=== PATIENT | male | born 1945 | race Caucasian/White ===

== ENCOUNTER 2017-05-25 15:26 | Outpatient (CLI) | payer MEDICARE ==
--- NOTE | 2017-05-25 20:20 | Ultrasound Report ---
EXAM: RENAL ULTRASOUND EXAM DATE: 05/25/2017 03:39 PM. CLINICAL HISTORY: ACUTE RENAL FAILURE. COMPARISON: None. TECHNIQUE: Real-time scanning was performed with static images obtained. FINDINGS: Right Kidney: 10.5 x 5.8 x 5.3 cm. Normal echotexture with no stones, contour-deforming masses, or hy dronephrosis. Left Kidney: 11.4 x 6.0 x 5.3 cm. Normal echotexture with no stones, contour-deforming masses, or hyd ronephrosis. Bladder: Bilateral jets seen. The prevoid bladder volume was 495 cc. The postvoid bladder volume was 395 cc. Other: There is heterogeneous enlargement of the prostate. It demonstrates a volume of 180 cc. IMPRESSION: 1. The kidneys demonstrate no shadowing stones or hydronephrosis. 2. Large pre-and post void bladder volumes. 3. There is heterogeneous enlargement of the prostate with a volume of approximately 180 cc. [facility] The call report notification system was initiated by Dr. Ander Obrien at 17:29 hrs on 05/25/17. Referring Provider Line: [phone] SITE ID: [id number]
== END 2017-05-25 15:27 | disposition home or self-care (01) ==
LOC: DI 15:26
DX: R10.84 Generalized abdominal pain (principal); N17.9 Acute kidney failure, unspecified; N40.0 Benign prostatic hyperplasia without lower urinary tract symptoms
CPT/HCPCS: 76770

== ENCOUNTER 2017-05-27 13:02 | Outpatient (CLI) | payer MEDICARE ==
[2017-05-27 14:06] LABS: CALCIUM 9.5 mg/dL (8.5-10.3); CREATININE 1.5 mg/dL (0.6-1.2); POTASSIUM 4.4 mmol/L (3.5-5.0)
== END 2017-05-27 13:03 | disposition home or self-care (01) ==
LOC: LAB 13:02
PROVIDERS: ATTEND Internal Medicine
DX: R10.84 Generalized abdominal pain (principal); N17.9 Acute kidney failure, unspecified
CPT/HCPCS: 36415; 80048

== ENCOUNTER 2017-10-29 13:16 | Emergency (ER) | payer MEDICARE ==
[2017-10-29 13:46] VITALS: BP 136/52
--- NOTE | 2017-10-29 14:41 | ED Physician Documentation ---
PD HPI URI - Stated complaint Stated Complaint: R EAR PX - Chief complaint Chief Complaint: Heent - History obtained from History obtained from: Patient - History of Present Illness Timing - onset: Other (He has had about 5 days of intermittently severe right ear pain with decreased hearing. Some chills with it as well but no measured fevers. He was seen at an urgent care and prescribed doxycycline but is no better. He is not worse either.) Review of Systems Constitutional: reports: Chills. denies: Fever, Fatigue Ears: reports: Ear pain, Drainage/discharge Nose: denies: Rhinorrhea / runny nose, Congestion PD PAST MEDICAL HISTORY - Past Medical History Past Medical History: Yes Cardiovascular: Hypertension, High cholesterol Respiratory: None Neuro: None Endocrine/Autoimmune: Type 1 diabetes GI: None : Frequency Psych: Anxiety Musculoskeletal: Chronic back pain Derm: Other - Past Surgical History Past Surgical History: Yes Ortho: Hip replacement, Spine surgery HEENT: Cataracts - Present Medications Home Medications: Ambulatory Orders Medication Instructions Recorded Confirmed Atenolol [Tenormin] 50 mg PO DAILY 07/12/16 10/29/17 Atorvastatin [Lipitor] 80 mg PO QPM 07/12/16 10/29/17 Glipizide 10 mg PO BIDAC 07/12/16 10/29/17 Amlodipine Besylate 10 mg PO DAILY 07/13/16 10/29/17 Lisinopril 40 mg PO DAILY 07/13/16 10/29/17 Metformin HCl [Glucophage Xr] 1,000 mg PO BIDWM 07/13/16 10/29/17 Cephalexin [Keflex] 500 mg PO QID #40 capsule 07/17/16 10/29/17 Doxycycline Hyclate 100 mg PO BID #20 capsule 07/17/16 10/29/17 Ciprofloxacin HCl [Cipro] 500 mg PO BID #20 tablet 10/29/17 Neomycin/Polymyx/Hc Otic Drops 4 drops OT TID #1 bottle 10/29/17 [Cortisporin Ear Susp] - Allergies Allergies/Adverse Reactions: Allergies Allergy/AdvReac Type Severity Reaction Status Date / Time No Known Drug Allergies Allergy Verified 10/29/17 13:46 - Social History Does the pt smoke?: No Smoking Status: Never smoker Does the pt drink ETOH?: No Does the pt have substance abuse?: No - Immunizations Immunizations are current?: Yes - POLST Patient has POLST: No PD ED PE NORMAL - Vitals Vital signs reviewed: Yes - General General: Alert and oriented X 3, No acute distress - HEENT HEENT: Other (The right TM is normal but he does have external otitis, it is not occlusive. There is no mastoid tenderness. No shingles rash.) - Neck Neck: Supple, no meningeal sign, No bony TTP - Derm Derm: Other (Legs are without evidence of cellulitis, he had a specific concern about that.) - Neuro Neuro: Alert and oriented X 3, Normal speech Results - Vitals Vitals: Vital Signs - 24 hr 10/29/17 13:42 Temperature 36.1 C L Heart Rate 64 Respiratory 18 Rate Blood Pressure 136/52 H O2 Saturation 100 Oxygen O2 Source Room air PD MEDICAL DECISION MAKING - ED course ED course: He has external otitis, given that he is a diabetic he will be treated orally as well as topically. We will change his antibiotic from doxycycline to Cipro. He is advised to stop the doxycycline. Departure - Departure Disposition: 01 Home, Self Care Clinical Impression: Diabetes Qualifiers: Diabetes mellitus type: type 2 Diabetes mellitus complication status: with hyperglycemia Diabetes mellitus halfway insulin use: unspecified halfway insulin use status Qualified Code(s): E11.65 - Type 2 diabetes mellitus with hyperglycemia External otitis of right ear Qualifiers: Otitis externa type: unspecified type Chronicity: acute Qualified Code(s): H60.501 - Unspecified acute noninfective otitis externa, right ear Condition: Good Record reviewed to determine appropriate education?: Yes Instructions: ED Otitis Externa Prescriptions: Ciprofloxacin HCl [Cipro] 500 mg PO BID #20 tablet Neomycin/Polymyx/Hc Otic Drops [Cortisporin Ear Susp] 4 drops OT TID #1 bottle Comments: Call your doctor to arrange a follow-up appointment, make the next available appointment. In the interim, return anytime if worse or if new symptoms develop. Your blood pressure was elevated today on check into the emergency department. This does not mean that you have hypertension, it is a common phenomenon to come to the emergency department and have elevated blood pressure. I recommend that you see your primary care physician within the week to have it rechecked when you are feeling better.
== END 2017-10-29 14:44 | disposition home or self-care (01) ==
LOC: ED 13:16
DX: H60.501 Unspecified acute noninfective otitis externa, right ear (principal); E11.65 Type 2 diabetes mellitus with hyperglycemia; Z79.84 Long term (current) use of oral hypoglycemic drugs; I10 Essential (primary) hypertension; E78.00 Pure hypercholesterolemia, unspecified
CPT/HCPCS: 99283

== ENCOUNTER 2018-06-11 12:03 | Outpatient (CLI) | payer MEDICARE | END 2018-06-11 12:04 | disposition home or self-care (01) | LOC: LAB 12:03 | PROVIDERS: ATTEND Emergency Medicine | DX: Z79.01 Long term (current) use of anticoagulants (principal) | CPT/HCPCS: 85610 ==

== ENCOUNTER 2019-08-12 05:07 | Emergency (ER) | payer MEDICARE ==
--- NOTE | 2019-08-12 05:32 | ED Physician Documentation ---
PD HPI MALE - Stated complaint Stated Complaint: CANNOT URINATE - Chief complaint Chief Complaint: General - History obtained from History obtained from: Patient - History of Present Illness Timing - onset: Today Timing - details: Gradual onset Pain level max: 8 Pain level now: 8 Associated symptoms: Unable to urinate Recently seen: Emergency Dept - Additional information Additional information: patient was T+R from [place] ED for urinary retention, paz placed at that time. catheter was removed 2 days tony, initially, he had no difficulty urinating, but since this afternoon, he has has increasing difficulty urinating and eventuslly no UO despite urge to urinated. Review of Systems Constitutional: denies: Fever, Chills, Sweats GI: reports: Abdominal Pain (suprapubic pain, but no abdominal pain per se), Vomiting : denies: Dysuria, Frequency Musculoskeletal: denies: Back pain Neurologic: denies: Generalized weakness PD PAST MEDICAL HISTORY - Past Medical History Cardiovascular: Hypertension, High cholesterol Respiratory: None Endocrine/Autoimmune: Type 1 diabetes GI: None : Frequency Psych: Anxiety Musculoskeletal: Chronic back pain Derm: Other - Past Surgical History Past Surgical History: Yes Ortho: Hip replacement, Spine surgery HEENT: Cataracts - Present Medications Home Medications: Ambulatory Orders Medication Instructions Recorded Confirmed Atenolol [Tenormin] 50 mg PO DAILY 07/12/16 10/29/17 Atorvastatin [Lipitor] 80 mg PO QPM 07/12/16 10/29/17 Glipizide 10 mg PO BIDAC 07/12/16 10/29/17 Amlodipine Besylate 10 mg PO DAILY 07/13/16 10/29/17 Metformin HCl [Glucophage Xr] 1,000 mg PO BIDWM 07/13/16 10/29/17 lisinopriL [Lisinopril] 40 mg PO DAILY 07/13/16 10/29/17 Cephalexin [Keflex] 500 mg PO QID #40 capsule 07/17/16 10/29/17 Doxycycline Hyclate 100 mg PO BID #20 capsule 07/17/16 10/29/17 Ciprofloxacin HCl [Cipro] 500 mg PO BID #20 tablet 10/29/17 Neomycin/Polymyx/Hc Otic Drops 4 drops OT TID #1 bottle 10/29/17 [Cortisporin Ear Susp] Ciprofloxacin HCl [Cipro] 500 mg PO BID #20 tablet 08/12/19 - Allergies Allergies/Adverse Reactions: Allergies Allergy/AdvReac Type Severity Reaction Status Date / Time No Known Drug Allergies Allergy Verified 08/12/19 05:14 - Social History Does the pt smoke?: No Smoking Status: Never smoker Does the pt drink ETOH?: No Does the pt have substance abuse?: No - Immunizations Immunizations are current?: Yes - POLST Patient has POLST: No PD ED PE NORMAL - Vitals Vital signs reviewed: Yes - General General: Alert and oriented X 3, No acute distress, Well developed/nourished - Cardiac Cardiac: RRR, No murmur - Respiratory Respiratory: No respiratory distress, Clear bilaterally - Abdomen Abdomen: Soft, Non tender, Other (suprapubic fullness with moderate tenderness) - Back Back: No CVA TTP - Derm Derm: Normal color, Warm and dry, No rash Results - Vitals Vitals: Oxygen O2 Source Room air - Labs Labs: Microbiology 08/12/19 05:25 Urine Culture - Preliminary Urine,Catheterized Escherichia Coli Laboratory Tests 08/12/19 05:25 Urine Color YELLOW Urine Clarity CLOUDY Urine pH 5.5 Ur Specific [place] 1.015 Urine Protein TRACE Urine Glucose (UA) NEGATIVE Urine Ketones NEGATIVE Urine Occult Blood MODERATE H Urine Nitrite POSITIVE H Urine Bilirubin NEGATIVE Urine Urobilinogen 0.2 (NORMAL) Ur Leukocyte Esterase LARGE H Urine RBC 6-10 H Urine WBC >25 H Ur Squamous Epith Cells NONE SEEN Urine Bacteria Many H Ur Microscopic Review INDICATED Urine Culture Comments INDICATED PD MEDICAL DECISION MAKING - ED course Complexity details: reviewed results, re-evaluated patient, considered differential, d/w patient, d/w family ED course: RN placed paz catheter resulting in large UO and resolution of symptoms. urine is clear at times but mostly had large amount of purulence and sediment Departure - Departure Disposition: 01 Home, Self Care Clinical Impression: Urinary tract infection, Urinary retention Condition: Good Instructions: ED Catheter Care Paz, ED Retention Urinary Male, ED UTI Cystitis Male Prescriptions: Ciprofloxacin HCl [Cipro] 500 mg PO BID #20 tablet Discharge Date/Time: 08/12/19 06:35
[2019-08-12 05:51] LABS: BILIRUBIN,URINE NEGATIVE (NEGATIVE); GLUCOSE, URINE (UA) NEGATIVE (NEGATIVE); KETONES,URINE (UA) NEGATIVE (NEGATIVE); LEUKOCYTE ESTERASE, URINE LARGE (NEGATIVE); NITRITE,URINE POSITIVE (NEGATIVE); OCCULT BLOOD,URINE MODERATE (NEGATIVE); PH,URINE 5.5 PH (5.0-7.5); PROTEIN,URINE TRACE mg/dL (NEGATIVE); UROBILINOGEN,URINE 0.2 (NORMAL) E.U./dL (NORMAL)
[2019-08-12 05:55] LABS: CLARITY,URINE CLOUDY (CLEAR)
[2019-08-12] MEDS ORDERED: LIDOCAINE 1% 2 ML VIAL MC ONE (06:01)
[2019-08-12] MEDS ORDERED: cefTRIAXone 1 GM VIAL IM STA (06:01)
[2019-08-12] MEDS ORDERED: CIPROFLOXACIN 250 MG TABLET PO STA (06:01)
[2019-08-12 06:02] LABS: BACTERIA,URINE Many /HPF (None Seen); SQUAMOUS EPITHELIAL CELL,UR NONE SEEN (<= Few)
[2019-08-12 06:53] VITALS: BP 120/67
== END 2019-08-12 06:35 | disposition home or self-care (01) ==
LOC: ED 05:07
DX: N39.0 Urinary tract infection, site not specified (principal); R33.9 Retention of urine, unspecified; I10 Essential (primary) hypertension; E10.9 Type 1 diabetes mellitus without complications
CPT/HCPCS: 51702; 51798; 81001; 87086; 87181; 96372; 99283; 99284; A9270; 81003

== ENCOUNTER 2019-08-13 23:58 | Emergency (ER) | payer MEDICARE ==
--- NOTE | 2019-08-14 00:43 | ED Physician Documentation ---
PD HPI MALE - Stated complaint Stated Complaint: CATHETER PAIN - Chief complaint Chief Complaint: Abd Pain - History obtained from History obtained from: Patient - History of Present Illness Timing - onset: Yesterday (The patient was seen 2 days ago with urinary retention post Carrion removal the day prior. He had the Carrion placed without too much discomfort though the patient states he did have some bleeding in the catheter right after placement. He was noticing discomfort around the tip of the penis yesterday and today and he had not noticed that with the prior catheter. He was noticing some clumps of mucus as well as blood in the Carrion catheter output into the bag. He also has had redness and discomfort at the tip of the penis. He felt feverish yesterday with a temperature to 100.5. No back pain or vomiting.) Timing - details: Gradual onset, Still present Associated symptoms: Indwelling catheter (with redness and pain at time of p yonathan, and some discharge noted. He says the urine is draining out the catheter readily.). No: Dysuria, Scrotal swelling Recently seen: Emergency Dept (Seen in the ER 1-1/2 days ago with urinary retention. He had had a catheter removed in the urologist office the day prior to that and had urinated okay for part of the day and then difficulty again. That catheter had been in for a couple of weeks due to acute urinary retention. There is no signs of bladder infection at the initial catheter 2 weeks ago.) Review of Systems Constitutional: reports: Fever (yesterday to 100.5). denies: Chills, Myalgias Nose: denies: Rhinorrhea / runny nose, Congestion Throat: denies: Sore throat Respiratory: denies: Cough GI: denies: Abdominal Pain, Nausea, Vomiting : reports: Hematuria, Discharge Skin: denies: Rash Musculoskeletal: denies: Neck pain, Back pain Neurologic: reports: Generalized weakness. denies: Altered mental status PD PAST MEDICAL HISTORY - Past Medical History Past Medical History: Yes Cardiovascular: Hypertension, High cholesterol Respiratory: None Endocrine/Autoimmune: Type 1 diabetes GI: None : Frequency Psych: Anxiety Musculoskeletal: Chronic back pain Derm: Other - Past Surgical History Past Surgical History: Yes Ortho: Hip replacement, Spine surgery HEENT: Cataracts - Present Medications Home Medications: Ambulatory Orders Medication Instructions Recorded Confirmed Atenolol [Tenormin] 50 mg PO DAILY 12/17/16 04/05/18 Atorvastatin [Lipitor] 80 mg PO QPM 07/12/16 10/29/17 Glipizide 10 mg PO BIDAC 07/12/16 10/29/17 Amlodipine Besylate 10 mg PO DAILY 07/13/16 10/29/17 Metformin HCl [Glucophage Xr] 1,000 mg PO BIDWM 07/13/16 10/29/17 lisinopriL [Lisinopril] 40 mg PO DAILY 07/13/16 10/29/17 Cephalexin [Keflex] 500 mg PO QID #40 capsule 07/17/16 10/29/17 Doxycycline Hyclate 100 mg PO BID #20 capsule 07/17/16 10/29/17 Ciprofloxacin HCl [Cipro] 500 mg PO BID #20 tablet 10/29/17 Neomycin/Polymyx/Hc Otic Drops 4 drops OT TID #1 bottle 10/29/17 [Cortisporin Ear Susp] Ciprofloxacin HCl [Cipro] 500 mg PO BID #20 tablet 08/12/19 Doxycycline Monohydrate 100 mg PO BID #14 tablet 08/14/19 Lidocaine 1 applic TP Q4H PRN #15 cream..g. 08/14/19 Mupirocin 1 applic TP TID #15 g 08/14/19 - Allergies Allergies/Adverse Reactions: Allergies Allergy/AdvReac Type Severity Reaction Status Date / Time No Known Drug Allergies Allergy Verified 08/12/19 05:14 - Social History Does the pt smoke?: No Smoking Status: Never smoker Does the pt drink ETOH?: No Does the pt have substance abuse?: No - Immunizations Immunizations are current?: Yes - POLST Patient has POLST: No PD ED PE NORMAL - Vitals Vital signs reviewed: Yes - General General: Alert and oriented X 3, No acute distress, Well developed/nourished - Cardiac Cardiac: RRR, No murmur - Respiratory Respiratory: Clear bilaterally - Abdomen Abdomen: Normal bowel sounds, Soft, Non tender, Non distended, No organomegaly - 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 The tip of t he penis along the dorsal aspect has some redness and mild skin breakdown. There is some yellowish discharge around the meatus which I cultured. The glands are not swollen. The shaft is not swollen nor tender. The testicles feel normal size and without tenderness. There is some mild inguinal adenopathy on the left. The Carrion catheter bag shows clear. Yellow urine with 1 to small 2 to 3 mm sized clot of blood in the bottom. No obvious sediment.) - Rectal Rectal: Deferred - Back Back: No CVA TTP Results - Vitals Vitals: Vital Signs - 24 hr 08/14/19 08/14/19 00:00 02:29 Temperature 37.1 C 37.0 C Heart Rate 80 71 Respiratory 18 18 Rate Blood Pressure 146/62 H 137/70 H O2 Saturation 98 99 Oxygen O2 Source Room air - Labs Labs: Microbiology 08/14/19 00:57 Wound Culture - Preliminary Skin - Penile PD MEDICAL DECISION MAKING - ED course Complexity details: considered differential (He has some redness and irritation with some mild purulence around the meatus. Carrion catheter is draining fairly clearly. I am concerned he has a skin infection at the penis in addition to the UTI he had had. His urine culture showing E. coli but the sensitivities not yet back. He was prescribed Cipro and I would like to see on the urine sensitivities if it is sensitive to Doxy then at like to switch to that to provide a single antibiotic coverage for the skin as well as the urinary tract infection. Second choice would be sulfa-based but I prefer doxycycline given his somewhat impaired renal function. I did do a culture of the penile tip and will see if that shows a separate source infection.), d/w patient Departure - Departure Disposition: 01 Home, Self Care Clinical Impression: Infection of penis Urinary tract infection Qualifiers: Urinary tract infection type: catheter-associated UTI Indwelling urinary catheter type: indwelling urethral catheter Encounter type: subsequent encounter Qualified Code(s): T83.511D - Infection and inflammatory reaction due to indwelling urethral catheter, subsequent encounter Condition: Stable Record reviewed to determine appropriate education?: Yes Follow-Up: NICO RICHARDS MD [Primary Care Provider] - Prescriptions: Doxycycline Monohydrate 100 mg PO BID #14 tablet Lidocaine 1 applic TP Q4H PRN #15 cream..g. PRN Reason: Pain Mupirocin 1 applic TP TID #15 g Comments: Continue your current Cipro antibiotic until the urine culture and sensitivities are resulted. This likely will be later this morning or midday today. With that information we will see if we can change antibiotics to cover both the bladder infection and also likely skin infection of the penis. The penis skin infection is most likely to be cysts that off aureus. We do have a culture of that that we just started and will result in a couple of days. My intention is to try to treat both bladder and skin infections with one antibiotic. I wrote a prescription for doxycycline twice daily for a week. We should be able to call you with the urine culture result before you need to get that filled for your next dose. You can use mupirocin topical antibiotic around the tip of the penis where the catheter comes out. Do this 2-3 times a day. Also use lidocaine if needed for discomfort. Discharge Date/Time: 08/14/19 02:29
[2019-08-14] MEDS ORDERED: LIDOCAINE OINTMENT 5% 35.44 GM TUBE TOP STA (01:09)
[2019-08-14] MEDS ORDERED: MUPIROCIN 2% OINT 1 GM TOP STA (01:09)
[2019-08-14] MEDS ORDERED: DOXYCYCLINE 100 MG TABLET PO STA (01:22)
[2019-08-14 02:29] VITALS: BP 137/70
--- NOTE | 2019-08-15 09:01 | ED Physician Documentation ---
ED Addendum - Addendum Addendum: 08/15/19 08:59 The phone call from [facility] pharmacy requesting clarification of the lidocaine cream prescription as there is no percentage written on it. They have a 4% [id number] or 5% prescription. Given the fact that Dr. Christiansen wrote a prescription, it would be apparent he wanted the 5% cream and this was discussed with the Pharmacist.
== END 2019-08-14 02:29 | disposition home or self-care (01) ==
LOC: ED 23:58
DX: N48.29 Other inflammatory disorders of penis (principal); T83.511A Infection and inflammatory reaction due to indwelling urethral catheter, initial encounter; I10 Essential (primary) hypertension; E10.9 Type 1 diabetes mellitus without complications; Z79.84 Long term (current) use of oral hypoglycemic drugs
CPT/HCPCS: 87070; 87205; 99283; 99284; A9270

== ENCOUNTER 2019-09-03 19:26 | Emergency (ER) | payer MEDICARE ==
--- NOTE | 2019-09-03 19:56 | ED Physician Documentation ---
History of Present Illness - Stated complaint Stated Complaint: MALE / CATHETER COMPLICATION - Chief complaint Chief Complaint: General - Additonal information Additional information: This is a 74-year-old male with history of diabetes and BPH with paz catheter in place since July 26 of this year, who was sent in by his primary care provider for evaluation of potential perineum infection. He was seen for some swelling around his penis yesterday, which was thought to be fungal, he was started on antifungal agents, and states that overall it has been improving, the redness and swelling is gone down around the penis. He has not had any fever. He was called by his nurse practitioner Maury dominguez, who was concerned that he should be checked for more serious infection given his diabetes and wanted him to be checked here. Patient states he overall feels well, has not any vomiting, his catheter continues to function normally. He does not have any pain in his scrotum or perineum area other than some irritation around his penis. He is taking a topical antifungal which he has applied twice so far. Review of Systems Constitutional: denies: Fever Nose: denies: Rhinorrhea / runny nose Cardiac: denies: Chest pain / pressure Respiratory: denies: Dyspnea GI: denies: Abdominal Pain : reports: Other (Chronic Paz catheterization) Skin: reports: Rash Neurologic: denies: Generalized weakness Immunocompromised: reports: Other (Diabetic) PD PAST MEDICAL HISTORY - Past Medical History Cardiovascular: Hypertension, High cholesterol Respiratory: None Endocrine/Autoimmune: Type 1 diabetes GI: None : Frequency Psych: Anxiety Musculoskeletal: Chronic back pain Derm: Other - Past Surgical History Past Surgical History: Yes Ortho: Hip replacement, Spine surgery HEENT: Cataracts - Present Medications Home Medications: Ambulatory Orders Medication Instructions Recorded Confirmed Atenolol [Tenormin] 50 mg PO DAILY 07/12/16 10/29/17 Atorvastatin [Lipitor] 80 mg PO QPM 07/12/16 10/29/17 Glipizide 10 mg PO BIDAC 07/12/16 10/29/17 Amlodipine Besylate 10 mg PO DAILY 07/13/16 10/29/17 Metformin HCl [Glucophage Xr] 1,000 mg PO BIDWM 07/13/16 10/29/17 lisinopriL [Lisinopril] 40 mg PO DAILY 07/13/16 10/29/17 Cephalexin [Keflex] 500 mg PO QID #40 capsule 07/17/16 10/29/17 Doxycycline Hyclate 100 mg PO BID #20 capsule 07/17/16 10/29/17 Ciprofloxacin HCl [Cipro] 500 mg PO BID #20 tablet 10/29/17 Neomycin/Polymyx/Hc Otic Drops 4 drops OT TID #1 bottle 10/29/17 [Cortisporin Ear Susp] Ciprofloxacin HCl [Cipro] 500 mg PO BID #20 tablet 08/12/19 Doxycycline Monohydrate 100 mg PO BID #14 tablet 08/14/19 Lidocaine 1 applic TP Q4H PRN #15 cream..g. 08/14/19 Mupirocin 1 applic TP TID #15 g 08/14/19 - Allergies Allergies/Adverse Reactions: Allergies Allergy/AdvReac Type Severity Reaction Status Date / Time No Known Drug Allergies Allergy Verified 08/12/19 05:14 - Social History Does the pt smoke?: No Smoking Status: Never smoker Does the pt drink ETOH?: No Does the pt have substance abuse?: No - Immunizations Immunizations are current?: Yes - POLST Patient has POLST: No PD ED PE NORMAL - Vitals Vital signs reviewed: Yes - General General: Alert and oriented X 3, No acute distress - HEENT HEENT: Atraumatic, PERRL - Neck Neck: Supple, no meningeal sign - Cardiac Cardiac: RRR - Respiratory Respiratory: No respiratory distress, Clear bilaterally - Abdomen Abdomen: Normal bowel sounds, Soft, Other (Rotund, nontender to palpation all 4 quadrants) - Male Male : Other (Paz catheter in place. Patient appears circumcised but there is some redundant foreskin. There is mild erythema of the skin, no open lesions or sores. Scrotum is normal in appearance without erythema or tenderness. There is no crepitus, no vesicles or bulla, no skin changes surrounding the groin, the erythema is isolated to the penis itself) - Rectal Rectal: Other (Mitra-anal skin appears normal.) - Derm Derm: Warm and dry - Extremities Extremities: No deformity - Neuro Neuro: Alert and oriented X 3 - Psych Psych: Normal mood, Normal affect Results - Vitals Vitals: Vital Signs - 24 hr 09/03/19 21:11 Temperature 37.0 C Heart Rate 80 Respiratory 16 Rate Blood Pressure 142/62 H O2 Saturation 98 Oxygen O2 Source Room air - Labs Labs: Laboratory Tests 09/03/19 09/03/19 20:07 20:07 WBC 6.3 RBC 4.20 L Hgb 11.6 L Hct 36.3 L MCV 86.4 MCH 27.6 MCHC 32.0 RDW 13.7 Plt Count 242 MPV 9.3 Neut # (Auto) 3.6 Lymph # (Auto) 1.6 [place] # (Auto) 0.7 Eos # (Auto) 0.4 Baso # (Auto) 0.0 Absolute Nucleated RBC 0.00 Nucleated RBC % 0.0 Sodium 136 Potassium 4.8 Chloride 104 Carbon Dioxide 21 Anion Gap 11.0 BUN 35 H Creatinine 1.5 H Estimated GFR (MDRD) 46 L Glucose 288 H Calcium 9.1 Total Bilirubin 0.9 AST 20 ALT 21 Alkaline Phosphatase 83 C-Reactive Protein 1.3 H Total Protein 6.8 Albumin 3.9 Globulin 2.9 Albumin/Globulin Ratio 1.3 Lipase 40 PD MEDICAL DECISION MAKING - ED course Complexity details: considered differential (Laci's gangrene, cellulitis, balanitis, candidal infection, abscess) ED course: Patient is very well-appearing on arrival. He is afebrile, his pulse is normal, and on examination he has some localized inflammation around the penis, but no testicular or scrotal pain or tenderness or skin changes to suggest a more serious infectious process. This does appear to be some [place] infection. Lab s were obtained and showed no leukocytosis, slight anemia which is stable for patient, and some hyperglycemia consistent with his diabetes. His C-reactive protein is essentially normal at 1.3. Given the results of the labs as well as his very reassuring physical exam stability in the emergency department, I certainly do not see any signs of necrotizing soft tissue infection, abscess, or more serious infection and he appears appropriate for outpatient follow-up. I spoke with his primary care provider to discuss the results and our plan here. He will continue his topical antifungals, and will return to the emergency department with any worsening. Patient agreed this plan was discharged home in the care of his . Departure - Departure Disposition: Home, Self Care Clinical Impression: Candidiasis Condition: Good Follow-Up: NICO RICHARDS MD [Primary Care Provider] - Comments: It appears you have a likely yeast infection of the skin around your penis today. Your labs are reassuring, I do not see signs of a severe or more serious infection at this time, and I am glad that you are improving with the antifungal. Please continue the treatment started by your primary care provider, and if it looks that the infection is getting worse or you are having symptoms such as skin changes extending out from your penis, fever, blistering, confusion, or any other concerning symptoms, return to the emergency department immediately. Discharge Date/Time: 09/03/19 21:11
[2019-09-03 20:18] LABS: BASOPHILS % (AUTO) 0.6 %; EOSINOPHILS # (AUTO) 0.4 10^3/uL (0.0-0.7); EOSINOPHILS % (AUTO) 5.8 %; HGB - HEMOGLOBIN 11.6 g/dL (14.0-18.0); LYMPHOCYTES # (AUTO) 1.6 10^3/uL (1.5-3.5); LYMPHOCYTES % (AUTO) 24.8 %; MEAN CORPUSCULAR HEMOGLOBIN 27.6 pg (27.0-31.0); MEAN CORPUSCULAR VOLUME 86.4 fL (80.0-94.0); MEAN PLATELET VOLUME 9.3 fL (7.4-11.4); MONOCYTES # (AUTO) 0.7 10^3/uL (0.0-1.0); NEUTROPHILS # (AUTO) 3.6 10^3/uL (1.5-6.6); NEUTROPHILS % (AUTO) 57.2 %; PLT - PLATELET COUNT 242 10^3/uL (130-450); RED CELL DISTRIBUTION WIDTH 13.7 % (12.0-15.0); WHITE BLOOD COUNT 6.3 x10^3/uL (4.8-10.8)
[2019-09-03 20:37] LABS: ALBUMIN 3.9 g/dL (3.2-5.5); ALBUMIN/GLOBULIN RATIO 1.3 (1.0-2.2); BILIRUBIN,TOTAL 0.9 mg/dL (0.2-1.0); CALCIUM 9.1 mg/dL (8.5-10.3); CREATININE 1.5 mg/dL (0.6-1.2); CRP - C-REACTIVE PROTEIN 1.3 mg/dL (0-1.0); TOTAL PROTEIN 6.8 g/dL (6.7-8.2)
[2019-09-03 21:13] VITALS: BP 142/62
== END 2019-09-03 21:11 | disposition home or self-care (01) ==
LOC: ED 19:26
DX: B37.2 Candidiasis of skin and nail (principal); I10 Essential (primary) hypertension; E10.9 Type 1 diabetes mellitus without complications; Z96.0 Presence of urogenital implants; Z79.84 Long term (current) use of oral hypoglycemic drugs
CPT/HCPCS: 36415; 80053; 83690; 85025; 86140; 99283

== ENCOUNTER 2019-09-07 17:32 | Emergency (ER) | payer MEDICARE ==
[2019-09-07] MEDS ORDERED: FLUCONAZOLE 100 MG TABLET PO STA (17:51)
--- NOTE | 2019-09-07 17:53 | ED Physician Documentation ---
PD HPI MALE - Stated complaint Stated Complaint: FEVER/MALE /CLOUDY URINE - Chief complaint Chief Complaint: UTI - History obtained from History obtained from: Patient (74-year-old gentleman with chronic indwelling Carrion catheter due to large prostate presents with cloudy urine and some bladder spasms starting today. He also notes an itchy rash on his stomach which in the past has been fungal in etiology, and treated with clotrimazole cream but it is too large of an area for that. No fevers.) Review of Systems Constitutional: denies: Fever, Chills Cardiac: denies: Chest pain / pressure, Palpitations Respiratory: denies: Dyspnea, Cough GI: denies: Abdominal Pain, Nausea, Vomiting PD PAST MEDICAL HISTORY - Past Medical History Cardiovascular: Hypertension, High cholesterol Respiratory: None Endocrine/Autoimmune: Type 1 diabetes GI: None : Frequency Psych: Anxiety Musculoskeletal: Chronic back pain Derm: Other - Past Surgical History Past Surgical History: Yes Ortho: Hip replacement, Spine surgery HEENT: Cataracts - Present Medications Home Medications: Ambulatory Orders Medication Instructions Recorded Confirmed Atenolol [Tenormin] 50 mg PO DAILY 07/12/16 10/29/17 Atorvastatin [Lipitor] 80 mg PO QPM 07/12/16 10/29/17 Glipizide 10 mg PO BIDAC 07/12/16 10/29/17 Amlodipine Besylate 10 mg PO DAILY 07/13/16 10/29/17 Metformin HCl [Glucophage Xr] 1,000 mg PO BIDWM 07/13/16 10/29/17 lisinopriL [Lisinopril] 40 mg PO DAILY 07/13/16 10/29/17 Cephalexin [Keflex] 500 mg PO QID #40 capsule 07/17/16 10/29/17 Doxycycline Hyclate 100 mg PO BID #20 capsule 07/17/16 10/29/17 Ciprofloxacin HCl [Cipro] 500 mg PO BID #20 tablet 10/29/17 Neomycin/Polymyx/Hc Otic Drops 4 drops OT TID #1 bottle 10/29/17 [Cortisporin Ear Susp] Ciprofloxacin HCl [Cipro] 500 mg PO BID #20 tablet 08/12/19 Doxycycline Monohydrate 100 mg PO BID #14 tablet 08/14/19 Lidocaine 1 applic TP Q4H PRN #15 cream..g. 08/14/19 Mupirocin 1 applic TP TID #15 g 08/14/19 Amox/Clav 875/125 [Augmentin] 1 each PO Q12H #20 tablet 09/07/19 Fluconazole [Diflucan] 150 mg PO ONCE #3 tablet 09/07/19 - Allergies Allergies/Adverse Reactions: Allergies Allergy/AdvReac Type Severity Reaction Status Date / Time latex AdvReac Rash Verified 09/07/19 17:41 - Social History Does the pt smoke?: No Smoking Status: Never smoker Does the pt drink ETOH?: No Does the pt have substance abuse?: No - Immunizations Immunizations are current?: Yes - POLST Patient has POLST: No PD ED PE NORMAL - Vitals Vital signs reviewed: Yes - General General: Alert and oriented X 3, No acute distress - HEENT HEENT: PERRL, EOMI - Abdomen Abdomen: Soft, Non tender - Male Male : Other (The foreskin and glans are red and inflamed. There is a catheter in place that per the is about 2 weeks old, seems to be draining freely. The urine in the bag is cloudy.) - Derm Derm: Other (Mild erythema to the abdominal wall) - Extremities Extremities: No edema, No calf tenderness / cord - Neuro Neuro: Alert and oriented X 3, Normal speech Results - Vitals Vitals: Vital Signs - 24 hr 09/07/19 17:36 Temperature 36.4 C L Heart Rate 84 Respiratory 17 Rate Blood Pressure 130/60 O2 Saturation 99 Oxygen O2 Source Room air - Labs Labs: Laboratory Tests 09/07/19 17:55 Urine Color LT. YELLOW Urine Clarity HAZY Urine pH 6.0 Ur Specific [place] 1.010 Urine Protein TRACE Urine Glucose (UA) >=1000 H Urine Ketones NEGATIVE Urine Occult Blood MODERATE H Urine Nitrite NEGATIVE Urine Bilirubin NEGATIVE Urine Urobilinogen 0.2 (NORMAL) Ur Leukocyte Esterase MODERATE H Urine RBC 6-10 H Urine WBC >25 H Ur Squamous Epith Cells RARE Squamous Urine Bacteria Few Ur Microscopic Review INDICATED Urine Culture Comments INDICATED PD MEDICAL DECISION MAKING - ED course ED course: 74-year-old gentleman with chronic indwelling catheter presents with cloudy urine. Also some fungal infection of the skin. He was placed on Diflucan here. Previous urine culture from July reviewed, pansensitive E. coli at that time. Will treat with Augmentin pending cultures. Cannot use Bactrim due to interactions with other medications. Departure - Departure Disposition: 01 Home, Self Care Clinical Impression: Fungal skin infection UTI (urinary tract infection) Qualifiers: Urinary tract infection type: catheter-associated UTI Indwelling urinary catheter type: indwelling urethral catheter Encounter type: initial encounter Qualified Code(s): T83.511A - Infection and inflammatory reaction due to indwelling urethral catheter, initial encounter; N39.0 - Urinary tract infection, site not specified Condition: Good Record reviewed to determine appropriate education?: Yes Instructions: ED UTI Cystitis Male Prescriptions: Amox/Clav 875/125 [Augmentin] 1 each PO Q12H #20 tablet Fluconazole [Diflucan] 150 mg PO ONCE #3 tablet Comments: For the fungal skin infection you should take Diflucan once a week. We gave you a dose here. So next dose will be next Thursday. A total of 4 weeks. Follow-up with the urologist as scheduled. We will culture your urine, the results should be done in 48-72 hours. If an antibiotic change is necessary we will call you. Return if worse in the meantime, especially if you develop increasing flank pain, fevers, or cannot keep down the medication.
[2019-09-07 18:10] LABS: BILIRUBIN,URINE NEGATIVE (NEGATIVE); GLUCOSE, URINE (UA) >=1000 mg/dL (NEGATIVE); KETONES,URINE (UA) NEGATIVE (NEGATIVE); LEUKOCYTE ESTERASE, URINE MODERATE (NEGATIVE); NITRITE,URINE NEGATIVE (NEGATIVE); OCCULT BLOOD,URINE MODERATE (NEGATIVE); PROTEIN,URINE TRACE mg/dL (NEGATIVE); UROBILINOGEN,URINE 0.2 (NORMAL) E.U./dL (NORMAL)
[2019-09-07 18:17] LABS: CLARITY,URINE HAZY (CLEAR)
[2019-09-07 18:25] LABS: BACTERIA,URINE Few /HPF (None Seen); SQUAMOUS EPITHELIAL CELL,UR RARE Squamous (<= Few)
[2019-09-07] MEDS ORDERED: AMOX/CLAV 875 MG/125 MG TABLET PO STA (18:36)
[2019-09-07 18:45] VITALS: BP 130/80
== END 2019-09-07 18:44 | disposition home or self-care (01) ==
LOC: ED 17:32
DX: T83.511A Infection and inflammatory reaction due to indwelling urethral catheter, initial encounter (principal); Y84.6 Urinary catheterization as the cause of abnormal reaction of the patient, or of later complication, without mention of misadventure at the time of the procedure; B36.9 Superficial mycosis, unspecified; I10 Essential (primary) hypertension; E10.9 Type 1 diabetes mellitus without complications
CPT/HCPCS: 81001; 87077; 87086; 87181; 99283; 99284; A9270; 81003

== ENCOUNTER 2020-06-17 13:23 | Outpatient (CLI) | payer MEDICARE | END 2020-06-17 23:59 | disposition home or self-care (01) | LOC: LAB.R 13:23 | PROVIDERS: ATTEND Physician Assistant | DX: J06.9 Acute upper respiratory infection, unspecified (principal); J02.9 Acute pharyngitis, unspecified; Z20.828 Contact with and (suspected) exposure to other viral communicable diseases ==

== ENCOUNTER 2020-07-11 15:17 | Outpatient (CLI) | payer MEDICARE ==
[2020-07-11 20:21] LABS: CALCIUM 9.4 mg/dL (8.5-10.3); CREATININE 1.4 mg/dL (0.6-1.2); MAGNESIUM 2.3 mg/dL (1.7-2.8)
== END 2020-07-11 15:18 | disposition home or self-care (01) ==
LOC: LAB.S 15:17
PROVIDERS: ATTEND Nurse Practitioner Family
DX: E11.29 Type 2 diabetes mellitus with other diabetic kidney complication (principal)
CPT/HCPCS: 36415; 80048; 82043; 83735

== ENCOUNTER 2021-05-17 07:00 | Outpatient (CLI) | payer MEDICARE | END 2021-05-17 23:59 | disposition home or self-care (01) | LOC: COV 07:00 | PROVIDERS: ATTEND Emergency Medicine | DX: J06.9 Acute upper respiratory infection, unspecified (principal); R05.9 Cough, unspecified; Z20.822 Contact with and (suspected) exposure to COVID-19 ==

== ENCOUNTER 2022-03-30 15:40 | Emergency (ER) | payer MEDICARE ==
--- NOTE | 2022-03-30 17:58 | ED Physician Documentation ---
History of Present Illness - Stated complaint Stated Complaint: MALE - Chief complaint Chief Complaint: Wound - History obtained from History obtained from: Patient, Family - Additonal information Additional information: PT comes to the ED with CC of penile lesion and possible "spider bite" to his L buttock. He just noticed the penile lesion today, but the painful bump on his buttock has been there for several days, though it's now improving. No fevers or chills. No other lesions. No penile discharge or dysuria. No abd pain or vomiting. He is sexually monogamous with his , but does have a h/o herpes. Review of Systems Ten Systems: 10 systems reviewed and negative Constitutional: reports: Reviewed and negative Eyes: reports: Reviewed and negative Ears: reports: Reviewed and negative Nose: reports: Reviewed and negative Throat: reports: Reviewed and negative Cardiac: reports: Reviewed and negative Respiratory: reports: Reviewed and negative GI: reports: Reviewed and negative : reports: Reviewed and negative Skin: reports: Reviewed and negative Musculoskeletal: reports: Reviewed and negative Neurologic: reports: Reviewed and negative Psychiatric: reports: Reviewed and negative Endocrine: reports: Reviewed and negative Immunocompromised: reports: Reviewed and negative PD PAST MEDICAL HISTORY - Past Medical History Past Medical History: Yes Cardiovascular: Hypertension, High cholesterol Respiratory: None Neuro: None Endocrine/Autoimmune: Type 1 diabetes GI: None : Benign prostate hypertrophy, Frequency HEENT: None Psych: Anxiety Musculoskeletal: Chronic back pain Derm: Other - Past Surgical History Past Surgical History: Yes Ortho: Hip replacement, Spine surgery HEENT: Cataracts - Present Medications Home Medications: Ambulatory Orders Medication Instructions Recorded Confirmed Atenolol [Tenormin] 50 mg PO DAILY 07/12/16 10/29/17 Atorvastatin [Lipitor] 80 mg PO QPM 07/12/16 10/29/17 glipiZIDE [Glipizide] 10 mg PO BIDAC 07/12/16 10/29/17 Amlodipine Besylate 10 mg PO DAILY 07/13/16 10/29/17 Metformin HCl [Glucophage Xr] 1,000 mg PO BIDWM 07/13/16 10/29/17 lisinopriL [Lisinopril] 40 mg PO DAILY 07/13/16 10/29/17 Doxycycline Hyclate 100 mg PO BID #20 capsule 07/17/16 10/29/17 cephALEXin [Keflex] 500 mg PO QID #40 capsule 07/17/16 10/29/17 Ciprofloxacin HCl [Cipro] 500 mg PO BID #20 tablet 10/29/17 Neomycin/Polymyx/Hc Otic Drops 4 drops OT TID #1 bottle 10/29/17 [Cortisporin Ear Susp] Ciprofloxacin HCl [Cipro] 500 mg PO BID #20 tablet 08/12/19 Doxycycline Monohydrate 100 mg PO BID #14 tablet 08/14/19 Lidocaine 1 applic TP Q4H PRN #15 cream..g. 08/14/19 Mupirocin 1 applic TP TID #15 g 08/14/19 Amox/Clav 875/125 [Augmentin] 1 each PO Q12H #20 tablet 09/07/19 Fluconazole [Diflucan] 150 mg PO ONCE #3 tablet 09/07/19 Clindamycin HCl [Clindamycin 300MG 300 mg PO Q6H #28 capsule 09/28/19 CAP] - Allergies Allergies/Adverse Reactions: Allergies Allergy/AdvReac Type Severity Reaction Status Date / Time latex AdvReac Rash Verified 03/30/22 15:50 - Social History Does the pt smoke?: No Smoking Status: Never smoker Does the pt drink ETOH?: No Does the pt have substance abuse?: No - Immunizations Immunizations are current?: Yes - POLST Patient has POLST: No PD ED PE NORMAL - Vitals Vital signs reviewed: Yes - General General: Alert and oriented X 3, No acute distress, Well developed/nourished - HEENT HEENT: Atraumatic, PERRL, EOMI, Moist mucous membranes - Neck Neck: Supple, no meningeal sign - Respiratory Respiratory: No respiratory distress - Male Male : Banking Consultant present ( in room during exam), Other (penis retracted within surrounding tissue, but easily exposed. Shallow 1 cm erosion of skin at edge of glans. No other lesions. No induration or mass. No raising of edges of erosion. No drainage.) - Rectal Rectal: Other (Older-appearing, 1-cm diameter area of erythema with resolving scab/new skin growing. No fluctuance/induration/drainage. Minimal tenderness. No other lesions.) - Derm Derm: Warm and dry - Extremities Extremities: No deformity - Neuro Neuro: Alert and oriented X 3 - Psych Psych: Normal mood, Normal affect Results - Vitals Vitals: Oxygen O2 Source Room air PD MEDICAL DECISION MAKING - ED course Complexity details: considered differential, d/w patient, d/w family ED course: I d/w pt that his erosion could be due to herpes or it could be due to friction, considering the retracted position of his penis. He does not think he is having a herpes outbreak, and does not want prophylactic treatment. I have d/w him that the resolving lesion on his buttock requires no further intervention. I have addressed the concerns of pt and about both Monkeypox and staph. We have discussed the usual indications for return. Departure - Departure Disposition: 01 Home, Self Care Clinical Impression: Penile lesion, Scab Condition: Stable Comments: The lesion on your buttock is very small and appears to be old and resolving. There is no evidence of an abscess or a skin infection that needs antibiotics. The apex of the lesion is scabbed and dry. Your penile erosions are extremely shallow and appear to be raw spots. These could represent very shallow herpes lesions, though generally the start is a vesicle, or blister, and progressed to a raw erosion in the skin. We have discussed that this could represent a possible mild herpes outbreak, but at this point in time, you have opted not to be started on treatment for herpes specifically. The right areas do not appear typical of any other sexually transmitted or nonsexually transmitted genital infection. The area should be cleaned twice daily. You may also apply an antibiotic ointment or a protective paste or ointment such as Desitin or Bag Winter to the area to help prevent further development of raw spots. If you develop more lesions, you should have the area rechecked. Discharge Date/Time: 03/30/22 18:12
[2022-03-30 18:12] VITALS: BP 141/78
== END 2022-03-30 18:12 | disposition home or self-care (01) ==
LOC: ED 15:40
DX: L98.9 Disorder of the skin and subcutaneous tissue, unspecified (principal); N48.89 Other specified disorders of penis
CPT/HCPCS: 99281; 99282

== ENCOUNTER 2023-05-11 13:55 | Outpatient (CLI) | payer MEDICARE ==
[2023-05-11 14:20] LABS: BASOPHILS % (AUTO) 0.5 %; EOSINOPHILS # (AUTO) 0.1 10^3/uL (0.0-0.7); EOSINOPHILS % (AUTO) 1.7 %; HCT - HEMATOCRIT 39.1 % (42.0-52.0); HGB - HEMOGLOBIN 12.7 g/dL (14.0-18.0); LYMPHOCYTES # (AUTO) 1.5 10^3/uL (1.5-3.5); LYMPHOCYTES % (AUTO) 25.6 %; MEAN CORPUSCULAR HEMOGLOBIN 28.2 pg (27.0-31.0); MEAN CORPUSCULAR HGB CONC 32.5 g/dL (32.0-36.0); MEAN CORPUSCULAR VOLUME 86.7 fL (80.0-94.0); MEAN PLATELET VOLUME 10.1 fL (7.4-11.4); MONOCYTES # (AUTO) 0.6 10^3/uL (0.0-1.0); MONOCYTES % (AUTO) 9.6 %; NEUTROPHILS # (AUTO) 3.7 10^3/uL (1.5-6.6); NEUTROPHILS % (AUTO) 62.3 %; PLT - PLATELET COUNT 180 10^3/uL (130-450); RED BLOOD COUNT 4.51 10^6/uL (4.70-6.10); RED CELL DISTRIBUTION WIDTH 13.3 % (12.0-15.0); WHITE BLOOD COUNT 5.9 x10^3/uL (4.8-10.8)
[2023-05-11 14:25] LABS: BILIRUBIN,URINE NEGATIVE (NEGATIVE); GLUCOSE, URINE (UA) >=1000 mg/dL (NEGATIVE); KETONES,URINE (UA) NEGATIVE (NEGATIVE); LEUKOCYTE ESTERASE, URINE NEGATIVE (NEGATIVE); NITRITE,URINE NEGATIVE (NEGATIVE); OCCULT BLOOD,URINE NEGATIVE (NEGATIVE); PROTEIN,URINE TRACE mg/dL (NEGATIVE); UROBILINOGEN,URINE 0.2 (NORMAL) E.U./dL (NORMAL)
[2023-05-11 14:34] LABS: BACTERIA,URINE None Seen /HPF (None Seen); CLARITY,URINE CLEAR (CLEAR); RBC,URINE None Seen /HPF (0-5); SQUAMOUS EPITHELIAL CELL,UR NONE SEEN (<= Few); WBC,URINE 0-3 /HPF (0-3)
[2023-05-11 14:36] LABS: CREATININE,URINE 60.3 mg/dL; PROTEIN/CREATININE RATIO,URINE 0.5 (<=0.2)
[2023-05-11 14:36] LABS: ALBUMIN 4.4 g/dL (3.2-5.5); CALCIUM 9.9 mg/dL (8.5-10.3); CREATININE 1.4 mg/dL (0.6-1.3); PHOSPHORUS 2.9 mg/dL (2.5-5.0); POTASSIUM 4.7 mmol/L (3.5-4.5)
== END 2023-05-11 13:56 | disposition home or self-care (01) ==
LOC: LAB 13:55
PROVIDERS: ATTEND Internal Medicine Nephrology
DX: N18.31 Chronic kidney disease, stage 3a (principal)
CPT/HCPCS: 36415; 80069; 81001; 82306; 82570; 83970; 84156; 85025

== ENCOUNTER 2023-10-11 15:07 | Outpatient (CLI) | payer MEDICARE | END 2023-10-11 23:59 | disposition short-term general hospital (02) | LOC: EMS 15:07 | DX: R55 Syncope and collapse (principal) | CPT/HCPCS: A0425; A0429 ==

== ENCOUNTER 2023-12-08 11:34 | Outpatient (CLI) | payer MEDICARE ==
[2023-12-09 19:07] LABS: SJOGREN'S ANTI-SS-B <0.2 AI (0.0-0.9)
== END 2023-12-08 11:35 | disposition home or self-care (01) ==
LOC: LAB.S 11:34
PROVIDERS: ATTEND Internal Medicine Nephrology
DX: N18.31 Chronic kidney disease, stage 3a (principal)
CPT/HCPCS: 86235

== ENCOUNTER 2024-02-12 08:17 | Outpatient (CLI) | payer MEDICARE | END 2024-02-12 08:18 | disposition home or self-care (01) | LOC: LAB.S 08:17 | PROVIDERS: ATTEND Internal Medicine | DX: I35.0 Nonrheumatic aortic (valve) stenosis (principal); Z95.3 Presence of xenogenic heart valve | CPT/HCPCS: 83704 ==